=== PATIENT | male | born 1980 | race Caucasian/White ===

== ENCOUNTER 2017-09-09 20:42 | Emergency (ER) | payer SELFPAY ==
[2017-09-09] MEDS: HYDROcodone/APAP 5/325MG 1 TAB TABLET PO (21:55)
[2017-09-09] MEDS: NAPROXEN 500 MG TABLET PO (21:55)
[2017-09-09] MEDS: ALPRAZolam 0.5 MG TABLET PO (21:55)
== END 2017-09-09 22:53 | disposition home or self-care (01) ==
LOC: ER 22:53
DX: S62.310A Displaced fracture of base of second metacarpal bone, right hand, initial encounter for closed fracture (principal); W29.8XXA Contact with other powered hand tools and household machinery, initial encounter; Y93.89 Activity, other specified; Y99.8 Other external cause status; Y92.89 Other specified places as the place of occurrence of the external cause
CPT/HCPCS: 29125; 73130; 99284